=== PATIENT | female | born 1960 | race Caucasian/White ===

== ENCOUNTER 2022-04-11 13:34 | Emergency (ER) | payer BC | END 2022-04-11 15:21 | disposition home or self-care (01) | LOC: JD.ED 13:34 → JD.SDS 13:34 → EDSTATUS 14:45 → JD.ED 15:21 | DX: K80.20 Calculus of gallbladder without cholecystitis without obstruction (principal) | CPT/HCPCS: 99283 ==

== ENCOUNTER 2022-04-15 14:00 | Day surgery (SDC) | payer BC ==
[2022-04-15] MEDS: Lactated Ringers 1,000 ML IV SCH ×3 (13:40→17:40)
[~2022-04-15 14:00] MED LIST: Acetaminophen 325 MG Tab PO ONE; Bupivacaine 0.5%/EPINEPHrine 1:200,000 50 ML MDV ONE; Gabapentin 300 MG Cap PO ONE; Lidocaine 1% 30 ML SDV ONE; Lidocaine 1% 8 ML ONE; Lidocaine 1% with EPINEPHrine 1:100,000 20 ML MDV ONE; Lidocaine 1%/Sod Bicarbonate in NS 8.4% 1 ML Syringe IDERM PRN; Sodium Chloride 0.9% 10 ML Syringe FLUSH PRN; Sodium Chloride 0.9% 10 ML Syringe FLUSH SCH; ceFAZolin 2 GM Vial ONE
[2022-04-15] MEDS ORDERED: HYDROmorphone 0.5 MG/0.5 ML Syringe ONE ×2 (14:01→15:43)
[2022-04-15] MEDS ORDERED: Succinylcholine 200 MG/10 ML MDV ONE (14:01)
[2022-04-15] MEDS ORDERED: Rocuronium 50 MG/5 ML Vial ONE (14:01)
[2022-04-15] MEDS ORDERED: fentaNYL 250 MCG/5 ML SDV ONE (14:02)
[2022-04-15] MEDS ORDERED: Midazolam 1 MG/ML 2 ML SDV ONE (14:02)
[2022-04-15] MEDS ORDERED: Propofol 200 MG/20 ML SDV ONE ×2 (14:02→15:52)
[2022-04-15] MEDS ORDERED: Ketorolac 30 MG/ML SDV ONE (14:04)
[2022-04-15] MEDS ORDERED: Dexamethasone 4 MG/ML 5 ML MDV ONE (14:04)
[2022-04-15] MEDS ORDERED: Metoclopramide 10 MG/2 ML SDV ONE (14:04)
[2022-04-15] MEDS ORDERED: Ondansetron 4 MG/2 ML SDV ONE (14:04)
[2022-04-15] MEDS ORDERED: Lactated Ringers 1,000 ML ONE (14:46)
[2022-04-15] MEDS ORDERED: HYDROmorphone 0.5 MG/0.5 ML Syringe IVPUSH PRN (14:56)
[2022-04-15] MEDS ORDERED: fentaNYL 100 MCG/2 ML SDV IVPUSH PRN (14:56)
[2022-04-15] MEDS ORDERED: Prochlorperazine 10 MG/2 ML SDV IVPUSH PRN (16:47)
[2022-04-15] MEDS ORDERED: Acetaminophen/HYDROcodone 325-5 MG Tab PO PRN (18:33)
== END 2022-04-15 19:14 | disposition home or self-care (01) ==
LOC: JD.SDS 14:00
PROVIDERS: ATTEND Surgery
DX: K80.10 Calculus of gallbladder with chronic cholecystitis without obstruction (principal); F41.9 Anxiety disorder, unspecified; F43.10 Post-traumatic stress disorder, unspecified; Z79.899 Other long term (current) drug therapy
CPT/HCPCS: 47562; A9270; J0330; J0690; J0780; J1100; J1170; J2250; J2405; J2704; J2765; J3010; J3490; J7120; J1885